=== PATIENT | female | born 1965 | race African-American/Black ===

== ENCOUNTER 2021-10-15 02:56 | Emergency (ER) | payer OTHER ==
[~2021-10-15] VITALS: Ht 154.9 cm; Wt 54.5 kg
[2021-10-15] MEDS ORDERED: NAPR-1197 PO (03:11)
[2021-10-15] MEDS ORDERED: IBUP-2070 PO (03:11)
[2021-10-15] MEDS ORDERED: LIDOCAINE 5% TRANSDERMAL PATCH TD ONE (03:15)
[2021-10-15] MEDS ORDERED: ACETAMINOPHEN 325 MG TABLET PO ONE (03:15)
[2021-10-15] MEDS ORDERED: KETOROLAC TROMETHAMINE 30 MG/ML VIAL IM ONE (04:00)
[2021-10-15] MEDS ORDERED: KETOROLAC TROMETHAMINE 30 MG/ML VIAL IVP ONE (04:15)
[2021-10-15] MEDS ORDERED: DIAZEPAM 5 MG TABLET PO ONE (05:00)
[2021-10-15] MEDS ORDERED: IBUP-1554 PO ×2 (06:34→09:49)
[2021-10-15 06:55] LABS: BASOPHILS % (AUTO) 1.4 % (0.0-2.0); EOSINOPHILS % (AUTO) 1.8 % (1.0-6.0); HEMATOCRIT 36.9 % (36-46); HEMOGLOBIN 12.5 g/dL (12.0-16.0); LYMPHOCYTES # (AUTO) 1.6 K/uL (1.0-4.8); LYMPHOCYTES % (AUTO) 28.6 % (22.0-44.0); MEAN CORPUSCULAR HGB CONC 33.8 G/dL (31.0-37.0); MEAN CORPUSCULAR VOLUME 89 fL (80-100); MONOCYTES # (AUTO) 0.3 K/uL (0.1-1.0); MONOCYTES % (AUTO) 6.1 % (2.0-9.0); NEUTROPHILS # (AUTO) 3.5 K/uL (1.8-7.7); NEUTROPHILS % (AUTO) 62.1 % (40.0-70.0); PLATELET COUNT (AUTO) 383 K/uL (150-450); RED BLOOD CELL COUNT(AUTO) 4.17 MIL/uL (4.00-5.20); RED CELL DISTRIBUTION WIDTH 13.1 % (11.5-14.5)
[2021-10-15] MEDS ORDERED: ONDANSETRON HCL 4 MG/2 ML VIAL IVP ONE (07:00)
[2021-10-15] MEDS ORDERED: MORPHINE SULFATE 4 MG/ML SYRINGE IVP ONE ×2 (07:00→09:00)
[2021-10-15] MEDS ORDERED: METHOCARBAMOL 100 MG/ML 10 ML VIAL IVP ONE (07:00)
[2021-10-15 07:03] LABS: ANION GAP 12 mmol/L (8-16); CALCIUM, TOTAL 9.6 mg/dL (8.8-10.5); CARBON DIOXIDE 26 mmol/L (22-29); CHLORIDE 102 mmol/L (98-107); CREATININE 0.98 mg/dL (0.60-1.30); GLUCOSE,RANDOM 136 mg/dL (70-110); POTASSIUM 3.1 mmol/L (3.5-5.1); SODIUM SERUM 140 mmol/L (136-145); UREA NITROGEN, BLOOD 12 mg/dL (7-18)
[2021-10-15 07:05] LABS: ALANINE AMINOTRANSFERASE 28 U/L (12-78); ALBUMIN 3.9 g/dL (3.4-5.0); ALKALINE PHOSPHATASE 72 U/L (46-116); ASPARTATE AMINOTRANSFERASE 18 U/L (15-37); BILIRUBIN,TOTAL 0.3 mg/dL (0.1-1.0); GLOMERULAR FILTR. RATE CALC > 60 mL/min (>60); LIPASE 83 U/L (73-393); TOTAL PROTEIN, SERUM 7.7 g/dL (6.4-8.2)
[2021-10-15] MEDS ORDERED: AmLODIPine BESYLATE 5 MG TABLET PO ONE (07:15)
[2021-10-15] MEDS ORDERED: HYDROCODONE/ACETAMINOPHEN 5-325 MG TABLET PO ONE (09:00)
[2021-10-15] MEDS ORDERED: POTASSIUM CHLORIDE 10% 40 MEQ/30 ML LIQUID UDCUP PO ONE (09:00)
[2021-10-15] MEDS ORDERED: AMLO-258 PO (09:49)
[2021-10-15] MEDS ORDERED: BACL10TA PO (09:49)
[2021-10-15] MEDS ORDERED: HYDR-4723 PO (09:49)
[2021-10-15 10:12] VITALS: BP 153/91
== END 2021-10-15 10:26 | disposition home or self-care (01) ==
LOC: EMS 03:00
DX: M54.89 Other dorsalgia (principal); I10 Essential (primary) hypertension; F17.210 Nicotine dependence, cigarettes, uncomplicated; Z87.39 Personal history of other diseases of the musculoskeletal system and connective tissue
CPT/HCPCS: 99285; 96374; 96375; 80053; 83690; 84484; 85025; 36415; 96376; J1885; J2270; J2405; J2800